=== PATIENT | male | born 1960 | race American Indian/Alaskan Native ===

== ENCOUNTER 2016-07-14 08:20 | Emergency (ER) | payer OTHER ==
[2016-07-14 08:20] VITALS: BMI 41.3
[2016-07-14 08:27] VITALS: TEMP 98.9
[2016-07-14] MEDS ORDERED: Albuterol-Ipratrop 3 mg / 0.5 (3 ml) UD INH STA (09:17)
[2016-07-14] MEDS ORDERED: Albuterol-Ipratrop 3 mg / 0.5 (3 ml) UD ONE (09:23)
--- NOTE | 2016-07-14 09:54 | C.PDOC ---
History Of Present Illness 55 year old male presents to the emergency room with complaints of a nonproductive cough, nasal congestion, and sore throat for 3 days. Patient reports feeling pain in his chest and some shortness of breath when breathing out. Patient has a history of childhood asthma, and is a former smoker- quit 12 years ago. He denies fever, palpitations, productive cough, nausea, vomiting, sick contacts. Time Seen by Provider: 07/14/16 09:09 Chief Complaint (Nursing): Cough, Cold, Congestion History Per: Patient History/Exam Limitations: no limitations Onset/Duration Of Symptoms: Days (3) Current Symptoms Are (Timing): Still Present Location Of Pain: None Sick Contacts (Context): None Associated Symptoms: Sore Throat, Cough, Nasal Congestion. denies: Fever, Chills, Sputum, Nausea, Vomiting Ear Symptoms: Bilateral: None Severity: Mild Past Medical History Reviewed: Historical Data, Nursing Documentation, Vital Signs Vital Signs: Last Vital Signs Temp 98.9 F 07/14/16 08:22 Pulse 78 07/14/16 10:19 Resp 17 07/14/16 10:19 BP 149/79 07/14/16 10:19 Pulse Ox 98 07/14/16 11:19 - Medical History PMH: HTN, Hypercholesterolemia, Kidney Stones Surgical History: Cholecystectomy Family History: States: No Known Family Hx - Social History Hx Alcohol Use: Yes Hx Substance Use: No - Immunization History Hx Tetanus Toxoid Vaccination: No Hx Influenza Vaccination: No Hx Pneumococcal Vaccination: No Review Of Systems Except As Marked, All Systems Reviewed And Found Negative. Constitutional: Negative for: Fever, Chills ENT: Positive for: Nose Congestion, Throat Pain (Sore throat) Cardiovascular: Positive for: Chest Pain (On expiration). Negative for: Palpitations, Edema Respiratory: Positive for: Cough, Shortness of Breath (On expiration) Gastrointestinal: Negative for: Nausea, Vomiting, Abdominal Pain, Diarrhea Physical Exam - Physical Exam Appears: Well, Non-toxic, Other (Speaking in full sentences. Coughs occasionally.) Skin: Normal Color, Warm, Dry, No Rash Head: Normacephalic Eye(s): bilateral: Normal Inspection Nose: Normal, No Discharge Oral Mucosa: Moist Throat: Erythema (Mild), No Exudate, No Drooling Neck: Normal ROM, Supple Cardiovascular: Rhythm Regular, Other (Mildly tachycardic) Respiratory: No Accessory Muscle Use, No Rales, No Rhonchi, Wheezing (Scant expiratory wheezing B/L) Gastrointestinal/Abdominal: Normal Exam, Bowel Sounds, Soft, No Tenderness Extremity: Normal ROM, No Tenderness, No Pedal Edema, No Calf Tenderness Neurological/Psych: Oriented x3 ED Course And Treatment O2 Sat by Pulse Oximetry: 98 (RA) Pulse Ox Interpretation: Normal - Radiology CXR: Interpreted by Me, Viewed By Me CXR Interpretation: Yes: No Acute Disease. No: Infiltrates Progress Note: CXR ordered and reviewdd - negative for infiltrates/effusions. Patient given PO prednisone, duoneb treatment. Reevaluation Time: 10:05 Reassessment Condition: Improved (Patient reassessed, states he is feeling better. On exam, he has good air entry B/L without wheezing or accessory muscle use. CXR (-), Pox 98% on RA, and peak flow is 350 (improved from 250). Patient given Rxs for prednisone, tessalon and albuterol inhaler. He was instructed to follow up with PMD/clinic in 1-2 days, and understands he should return to ED if symptoms worsen.) Disposition Counseled Patient/Family Regarding: Studies Performed, Diagnosis, Need For Followup, Rx Given - Disposition Referrals: Ewa Guerrero MD [Medical Doctor] - Disposition: HOME/ ROUTINE Disposition Time: 10:05 Condition: STABLE Additional Instructions: FOLLOW UP WITH YOUR DOCTOR IN 1-2 DAYS USE MEDICATIONS DIRECTED RETURN TO ER IF SYMPTOMS WORSEN Prescriptions: Albuterol HFA [Ventolin HFA 90 mcg/actuation (8 g)] 0.09 mg IH Q4 PRN #1 puff PRN Reason: Wheezing Benzonatate [Tessalon Perles] 100 mg PO BID PRN #15 sgl PRN Reason: Cough predniSONE [predniSONE Tab] 40 mg PO DAILY #6 tab Instructions: Upper Respiratory Infection (ED), Bronchospasm (ED) Forms: Work Excuse Print Language: PORTUGUESE - POA Present On Arrival: None - Clinical Impression Clinical Impression: Upper respiratory infection, Bronchospasm - Scribe Statement The provider has reviewed the documentation as recorded by the Katarzynaibrudolph Dolan All medical record entries made by the Katarzynaibe were at my direction and personally dictated by me. I have reviewed the chart and agree that the record accurately reflects my personal performance of the history, physical exam, medical decision making, and the department course for this patient. I have also personally directed, reviewed, and agree with the discharge instructions and disposition.
[2016-07-14 10:20] VITALS: BP 149/79; PULSE 78; RESP 17
--- NOTE | 2016-07-14 10:50 | RAD ---
HISTORY: cough, sob COMPARISON: Chest x-ray performed 09/01/12 TECHNIQUE: Chest PA and lateral FINDINGS: Examination limited by habitus. LUNGS: No focal consolidation. Please note that chest x-ray has limited sensitivity for the detection of pulmonary masses. PLEURA: No significant pleural effusion identified. No definite pneumothorax . CARDIOVASCULAR: Heart size appears within normal limits. Ectatic aorta. Atherosclerotic calcification of the aortic knob. OSSEOUS STRUCTURES: Degenerative changes of the spine. VISUALIZED UPPER ABDOMEN: Upper abdominal surgical clips. OTHER FINDINGS: None. IMPRESSION: No focal consolidation, significant pleural effusion, or definite pneumothorax identified.
[2016-07-14 11:12] VITALS: O2SAT 98
== END 2016-07-14 10:26 | disposition home or self-care (01) ==
LOC: C.ER 08:20
DX: J06.9 Acute upper respiratory infection, unspecified (principal); J98.01 Acute bronchospasm

== ENCOUNTER 2016-08-12 19:38 | Emergency (ER) | payer OTHER ==
[2016-08-12 19:38] VITALS: BMI 41.3
[2016-08-12 19:58] VITALS: RESP 18
--- NOTE | 2016-08-12 21:00 | C.PDOC ---
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 Patient states he went home and felt pain radiate down his right arm. Denies any new weakness, new numbness, trauma, or other associated symptoms. Time Seen by Provider: 08/12/16 20:59 Chief Complaint (Nursing): Back Pain History Per: Patient History/Exam Limitations: no limitations Onset/Duration Of Symptoms: Days Current Symptoms Are (Timing): Still Present Quality Of Discomfort: "Pain" Severity: Mild Pain Scale Rating Of: 4 Previous Symptoms: None Associated Symptoms: denies: New Weakness, New Numbness Recent travel outside of the [place]: No Past Medical History Reviewed: Historical Data, Nursing Documentation, Vital Signs Vital Signs: Last Vital Signs Temp 98.4 F 08/12/16 19:55 Pulse 104 H 08/12/16 19:55 Resp 18 08/12/16 19:55 BP 137/91 H 08/12/16 19:55 Pulse Ox 97 08/12/16 21:26 - Medical History PMH: HTN, Hypercholesterolemia, Kidney Stones Denies: Chronic Kidney Disease Surgical History: Cholecystectomy Family History: States: Unknown Family Hx - Social History Hx Alcohol Use: Yes Hx Substance Use: No - Immunization History Hx Tetanus Toxoid Vaccination: No Hx Influenza Vaccination: No Hx Pneumococcal Vaccination: No Review Of Systems Except As Marked, All Systems Reviewed And Found Negative. Constitutional: Negative for: Fever, Chills Musculoskeletal: Positive for: Neck Pain, Hand Pain (R). Negative for: Shoulder Pain Skin: Negative for: Rash Neurological: Negative for: Weakness, Numbness Physical Exam - Physical Exam Appears: Non-toxic, No Acute Distress Skin: Warm, Dry Head: Atraumatic, Normacephalic Oral Mucosa: Moist Neck: Trachea Midline, No Midline Cervical Tenderness, Paracervical Tenderness ( mild muscle spasms to lateral right neck), No Step Off Deformity, Supple Chest: Symmetrical Back: No Vertebral Tenderness Extremity: Normal ROM, No Tenderness, Capillary Refill (< 2 sec. ), Other ( equal strength bilateral upper extremities) Extremity: Bilateral: Atraumatic, Normal Color And Temperature, Normal ROM Pulses: Left Radial: Normal, Right Radial: Normal Neurological/Psych: Oriented x3, Normal Speech, Normal Cognition, Normal Motor, Normal Sensation, Other (neuro intact) Gait: Steady ED Course And Treatment O2 Sat by Pulse Oximetry: 97 (RA) Pulse Ox Interpretation: Normal Progress Note: Motrin, CT spine ordered. Reevaluation Time: 22:44 Reassessment Condition: Improved Disposition Counseled Patient/Family Regarding: Studies Performed, Diagnosis, Need For Followup, Rx Given - Disposition Referrals: [facility] [Outside] Disposition: HOME/ ROUTINE Disposition Time: 21:00 Condition: FAIR Additional Instructions: Must follow up with workman's com doctor Prescriptions: Naproxen [Naprosyn] 1 tab PO BID PRN #25 tab PRN Reason: Pain Instructions: Cervical Strain (DC), Neck Exercises (GEN) Forms: Work Excuse - Clinical Impression Clinical Impression: Cervical strain, acute - Scribe Statement The provider has reviewed the documentation as recorded by the Deonte Hughes Provider Attestation: All medical record entries made by the Deonte were at my direction and personally dictated by me. I have reviewed the chart and agree that the record accurately reflects my personal performance of the history, physical exam, medical decision making, and the department course for this patient. I have also personally directed, reviewed, and agree with the discharge instructions and disposition.
[2016-08-12 22:55] VITALS: BP 126/81; PULSE 95; TEMP 97.8; O2SAT 100
--- NOTE | 2016-08-13 08:43 | CT ---
PROCEDURE: CT Cervical Spine without contrast HISTORY: <pain, strain , tingling down r arm> COMPARISON: None available. TECHNIQUE: Axial computed tomography images were obtained of the cervical spine without the use of intravenous contrast. Coronal and sagittal reformatted images were created and reviewed. Radiation dose: Total exam DLP = 626.92 mGy-cm. This CT exam was performed using one or more of the following dose reduction techniques: Automated exposure control, adjustment of the mA and/or kV according to patient size, and/or use of iterative reconstruction technique. FINDINGS: VERTEBRAE: Vertebral bodies are maintained in height. The transverse processes and posterior elements are intact. Normal alignment is maintained. There is mild reversal of the normal lordotic curvature indicating possible muscular spasm. The atlantoaxial articulation and odontoid process are intact. DISCS/SPINAL CANAL/NEURAL FORAMINA: There is mild spondylotic change about all of the intervertebral disc spaces with small anterior osteophytes but no significant intervertebral disc space narrowing. PARASPINAL SOFT TISSUES: Unremarkable. OTHER FINDINGS: There is a defect in the posterior left mandibular body at the site of what appears to be prior molar extraction. The margins are regular. There is mild surrounding bony sclerosis. Please correlate with clinical examination for any concern regarding an infectious process. Consider evaluation with magnetic resonance imaging if clinically warranted. IMPRESSION: No evidence of fracture or dislocation. Possible muscular spasm. Mild multilevel spondylotic change. Defect at site of what appears to be prior extraction of left posterior molar with irregular margins and surrounding sclerosis. Please correlate clinically for any concern regarding an infectious process. Preliminary interpretation of this examination was reported by [facility] at 10:21 p.m. on 08/12/2016. There is concurrence of this report with the preliminary interpretation.
== END 2016-08-12 22:56 | disposition home or self-care (01) ==
LOC: C.ER 19:38
DX: S16.1XXA Strain of muscle, fascia and tendon at neck level, initial encounter (principal); X50.0XXA Overexertion from strenuous movement or load, initial encounter; Y93.H3 Activity, building and construction; Y92.69 Other specified industrial and construction area as the place of occurrence of the external cause; Y99.8 Other external cause status

== ENCOUNTER 2016-09-29 19:54 | Emergency (ER) | payer OTHER ==
[2016-09-29 19:55] VITALS: BMI 41.3
[2016-09-29 20:08] VITALS: TEMP 97.9
--- NOTE | 2016-09-29 20:47 | C.PDOC ---
Time Seen by Provider: 09/29/16 20:31 Chief Complaint (Nursing): High Blood Pressure History Per: Patient, Family Onset/Duration Of Symptoms: Hrs (tonight) Current Symptoms Are (Timing): Better Quality Of Symptoms: Asymptomatic Severity: Moderate Exacerbating Factor(s): Pos: None Additional History Per: Prior Records Past Medical History Reviewed: Historical Data, Nursing Documentation, Vital Signs Vital Signs: Last Vital Signs Temp 97.9 F 09/29/16 20:03 Pulse 73 09/29/16 20:29 Resp 15 09/29/16 20:29 BP 147/86 09/29/16 20:29 Pulse Ox 99 09/29/16 20:29 - Medical History PMH: Diabetes, HTN, Hypercholesterolemia, Kidney Stones Surgical History: Cholecystectomy Family History: States: Unknown Family Hx - Social History Hx Alcohol Use: No (used to) Hx Substance Use: No - Immunization History Hx Tetanus Toxoid Vaccination: No Hx Influenza Vaccination: No Hx Pneumococcal Vaccination: No Review Of Systems Except As Marked, All Systems Reviewed And Found Negative. Constitutional: Negative for: Fever, Weakness Cardiovascular: Negative for: Chest Pain Respiratory: Negative for: Shortness of Breath Gastrointestinal: Negative for: Vomiting, Abdominal Pain Musculoskeletal: Negative for: Neck Pain, Back Pain Skin: Negative for: Rash Neurological: Negative for: Weakness, Numbness, Seizures, Altered Mental Status , Headache, Dizziness Physical Exam - Physical Exam Appears: Non-toxic, No Acute Distress Skin: Normal Color, Warm, Dry, No Rash Head: Atraumatic, Normacephalic Eye(s): bilateral: Normal Inspection, PERRL, EOMI Neck: Normal ROM, Supple Cardiovascular: Rhythm Regular Respiratory: Normal Breath Sounds, No Accessory Muscle Use Gastrointestinal/Abdominal: Soft, No Tenderness Back: No CVA Tenderness Extremity: Normal ROM Neurological/Psych: Oriented x3, Normal Motor, Normal Sensation ED Course And Treatment O2 Sat by Pulse Oximetry: 99 Pulse Ox Interpretation: Normal Progress Note: Pt's BP much improved without any intervention. Reassessment Condition: Improved Medical Decision Making Medical Decision Making: Will increase Lisinopril to 10mg bid. Disposition Counseled Patient/Family Regarding: Studies Performed, Diagnosis, Need For Followup - Disposition Disposition: HOME/ ROUTINE Disposition Time: 20:48 Condition: IMPROVED Additional Instructions: Take your Lisinopril 10mg tabs twice a day. Follow up with your doctor within 1 week. Return to the ER if you develop chest pain, shortness of breath, weakness , numbness, worsening of symptoms or if you have any other concerns. Instructions: Hypertension (ED) - Clinical Impression Clinical Impression: Asymptomatic hypertension
[2016-09-29 20:57] VITALS: BP 140/88; PULSE 74; RESP 14; O2SAT 97
== END 2016-09-29 20:57 | disposition home or self-care (01) ==
LOC: C.ER 19:54
DX: I10 Essential (primary) hypertension (principal)